=== PATIENT | female | born 1985 | race Caucasian/White ===

== ENCOUNTER 2020-11-11 22:38 | Inpatient (IN) ==
[2020-11-11] MEDS ORDERED: BUTORPHANOL 2 MG/ML VIAL IV PRN (23:19)
[2020-11-11] MEDS ORDERED: LACTATED RINGERS 500 ML IV PRN (23:19)
[2020-11-11] MEDS ORDERED: ONDANSETRON 4 MG/2 ML VIAL IV PRN (23:19)
[2020-11-11] MEDS ORDERED: LACTATED RINGERS 1,000 ML IV SCH (23:30)
[2020-11-11 23:48] LABS: Basophils % 0.3 % (0.0-0.8); Eosinophils # 0.2 10*3/uL (0.0-0.87); Eosinophils % 1.8 % (0.00-10.9); Hematocrit 40.1 VOL% (35.7-47.0); Hemoglobin 13.3 GM/DL (12.0-16.0); Lymphocytes # 2.4 10*3/uL (1.4-4.0); Lymphocytes % 25.1 % (21.3-54.2); Mean Corpuscular HGB Conc 33.2 GM/DL (32-36); Mean Corpuscular Volume 98.3 FL (87-102); Mean Platelet Volume 11.2 FL (9.6-12.0); Monocytes % 9.5 % (1.7-12.7); Neutrophils % 62.3 % (38.7-73.9); Platelet Count 188 T/CUMM (130-400); Red Blood Count 4.08 MC/CUMM (3.8-5.5); Red Cell Distribution Width 13.4 % (9.3-17.3); White Blood Count 9.6 T/CUMM (4-12)
[2020-11-11 23:59] LABS: Alanine Aminotransferase 28 U/L (13-56); Albumin 2.6 G/DL (3.4-5.0); Alkaline Phosphatase 189 U/L (45-117); Aspartate Amino Transferase 30 U/L (0-37); Bilirubin,Total < 0.39 MG/DL (0.2-1.0); Blood Urea Nitrogen 12 MG/DL (7-18); Calcium 9.5 MG/DL (8.5-10.1); Carbon Dioxide 23 MMOL/L (21-32); Estimated Glom Filtration Rate 100 ML/MIN; Glucose 93 MG/DL (74-106); Osmolality,Calculated 272.8 MOS/KG (273-304); Potassium 4.4 MMOL/L (3.5-5.1); Sodium 137 MMOL/L (136-145); Total Protein 6.7 G/DL (6.4-8.2)
[2020-11-12] MEDS: MEPERIDINE 50 MG/1 ML VIAL IV PRN ×2 (02:13→04:48)
[2020-11-12] MEDS ORDERED: ePHEDrine 50 MG/ML VIAL IV PRN (04:51)
[2020-11-12] MEDS ORDERED: NALOXONE 0.4 MG/ML VIAL IV PRN (04:51)
[2020-11-12] MEDS ORDERED: diphenhydrAMINE 50 MG/1 ML VIAL IV PRN ×2 (04:51)
[2020-11-12] MEDS ORDERED: FAMOTIDINE 20 MG/2 ML VIAL IV ONE (04:52)
[2020-11-12] MEDS ORDERED: CITRIC ACID/SODIUM CITRATE 30 ML UDCUP PO ONE (04:52)
[2020-11-12] MEDS ORDERED: SODIUM CHLORIDE 0.9% 0 ML IV ONE (04:55)
[2020-11-12] MEDS ORDERED: TRANEXAMIC ACID 1,000 MG/10 ML VIAL ONE (04:55)
[2020-11-12] MEDS ORDERED: miSOPROStoL 200 MCG TABLET ONE (04:55)
[2020-11-12] MEDS ORDERED: METHYLERGONOVINE 0.2 MG/1 ML AMP ONE (04:56)
[2020-11-12] MEDS ORDERED: CARBOPROST TROMETHAMINE 250 MCG/ML AMP IM ONE (04:56)
[2020-11-12] MEDS ORDERED: LIDOCAINE 1% 50 ML VIAL ONE (04:58)
[2020-11-12] MEDS ORDERED: OXYTOCIN/LR 20 UNIT/1,000 ML BAG IV SCH (05:00)
[2020-11-12] MEDS ORDERED: fentaNYL 2 MCG/ROPIV 0.2% EPID 100 ML EPIDURAL SCH (05:00)
[2020-11-12] MEDS ORDERED: HYDROCORTISONE 2.5% RECTAL CREAM 30 GM TUBE TOP PRN (06:29)
[2020-11-12] MEDS ORDERED: BENZOCAINE 20%/MENTHOL 0.5% SPRAY 56 GM CAN TOP PRN (06:29)
[2020-11-12] MEDS ORDERED: LANOLIN 50% CREAM 0.3 OZ TUBE TOP PRN (06:29)
[2020-11-12] MEDS ORDERED: ACETAMINOPHEN 325 MG TABLET PO PRN (06:29)
[2020-11-12] MEDS ORDERED: RHO(D) IMMUNE GLOBULIN 300 MCG SYRINGE IM ONE (06:29)
[2020-11-12] MEDS ORDERED: BISACODYL 10 MG SUPP RECTAL PRN (06:29)
[2020-11-12] MEDS ORDERED: oxyCODONE/ACETAMINOPHEN 5-325 MG TABLET PO PRN ×2 (06:29)
[2020-11-12] MEDS ORDERED: WITCH HAZEL PADS 100/JAR TOP PRN (06:29)
[2020-11-12] MEDS ORDERED: DIPH/TET/ACEL PERT BOOSTER VACCINE 0.5 ML VIAL IM ONE (06:29)
[2020-11-12] MEDS ORDERED: MEASLES/MUMPS/RUBELLA VACCINE 0.5 ML VIAL SUBCUT ONE (06:29)
[2020-11-12 06:56] LABS: Cord Venous Blood HCO3 20.3 MMOL/L; Cord Venous Blood PCO2 33.4 MMHG; Cord Venous Blood PO2 39.2 MMHG
[2020-11-12] MEDS: DOCUSATE SODIUM 100 MG CAPSULE PO SCH ×2 (18:15→20:56)
[2020-11-12] MEDS: MULTIVITAMIN (PRENATAL) TABLET PO SCH (18:15)
[2020-11-12] MEDS: IBUPROFEN 800 MG TABLET PO PRN (19:50)
[2020-11-13] MEDS: IBUPROFEN 800 MG TABLET PO PRN ×2 (06:32→20:48)
[2020-11-13 06:47] LABS: Basophils % 0.4 % (0.0-0.8); Eosinophils # 0.1 10*3/uL (0.0-0.87); Hematocrit 36.5 VOL% (35.7-47.0); Immature Granulocytes % 0.6 %; Immature Granulocytes Absolute 0.07 #; Lymphocytes # 2.2 10*3/uL (1.4-4.0); Lymphocytes % 19.4 % (21.3-54.2); Mean Corpuscular HGB Conc 32.9 GM/DL (32-36); Mean Corpuscular Volume 98.4 FL (87-102); Mean Platelet Volume 11.1 FL (9.6-12.0); Monocytes % 7.9 % (1.7-12.7); Neutrophils % 70.7 % (38.7-73.9); Platelet Count 154 T/CUMM (130-400); Red Blood Count 3.71 MC/CUMM (3.8-5.5); Red Cell Distribution Width 13.5 % (9.3-17.3); White Blood Count 11.1 T/CUMM (4-12)
[2020-11-13] MEDS: MULTIVITAMIN (PRENATAL) TABLET PO SCH (09:30)
[2020-11-13] MEDS: DOCUSATE SODIUM 100 MG CAPSULE PO SCH ×2 (09:30→20:40)
[2020-11-14 08:44] VITALS: BP 110/74
[2020-11-14] MEDS: MULTIVITAMIN (PRENATAL) TABLET PO SCH (08:52)
[2020-11-14] MEDS: DOCUSATE SODIUM 100 MG CAPSULE PO SCH (08:54)
== END 2020-11-14 12:01 | disposition home or self-care (01) | DRG 807 ==
LOC: N.LDOUT 22:38 → N.LD 22:40 → N.OB 11-12 11:07
PROVIDERS: ADMIT Obstetrics & Gynecology; ATTEND Obstetrics & Gynecology